=== PATIENT | female | born 2000 | race Caucasian/White ===

== ENCOUNTER 2018-02-10 23:34 | Emergency (ER) | payer MEDICAID ==
[~2018-02-10] VITALS: Ht 160 cm; Wt 65.0 kg
[2018-02-10 23:36] VITALS: BP 121/82
== END 2018-02-11 00:21 | disposition home or self-care (01) ==
LOC: ED 02-11
DX: H92.01 Otalgia, right ear (principal)
CPT/HCPCS: 99283

== ENCOUNTER 2018-07-07 20:31 | Emergency (ER) | payer MEDICAID, OTHER ==
[~2018-07-07] VITALS: Ht 160 cm; Wt 65.1 kg
[2018-07-07 20:42] VITALS: BP 118/74
[2018-07-07] MEDS ORDERED: HYDROcodone/APAP 5/325 TABLET ONE (21:23)
[2018-07-07] MEDS ORDERED: ONDANSETRON ODT 4 MG ONE (21:23)
[2018-07-07] MEDS ORDERED: ONDANSETRON ODT 4 MG PO ONE (21:30)
[2018-07-07] MEDS ORDERED: HYDROcodone/APAP 5/325 TABLET PO ONE (21:30)
== END 2018-07-07 21:52 ==
LOC: ED 21:50
DX: S00.11XA Contusion of right eyelid and periocular area, initial encounter (principal); S00.83XA Contusion of other part of head, initial encounter; F17.210 Nicotine dependence, cigarettes, uncomplicated; W01.198A Fall on same level from slipping, tripping and stumbling with subsequent striking against other object, initial encounter; Y93.E1 Activity, personal bathing and showering; Y92.098 Other place in other non-institutional residence as the place of occurrence of the external cause; Y99.8 Other external cause status
CPT/HCPCS: 70486; 99284; Q0162